=== PATIENT | female | born 1945 | race Caucasian/White ===

== ENCOUNTER 2019-12-18 03:44 | Emergency (ER) | payer MEDICARE ==
[2019-12-18] MEDS ORDERED: Ondansetron 4 MG/2 ML SDV IVPUSH ONE (04:55)
[2019-12-18] MEDS ORDERED: HYDROmorphone 0.5 MG/0.5 ML Syringe IVPUSH ONE ×2 (04:55→08:25)
[2019-12-18] MEDS ORDERED: Iopamidol 612 MG/ML 100 ML Bottle IV STA (05:53)
[2019-12-18] MEDS ORDERED: Lactated Ringers 1,000 ML IV ONE (05:54)
--- NOTE | 2019-12-18 05:54 | EDM.PDOC ---
<Luisito Rubio - Last Filed: 12/18/19 07:43> ED HPI GENERAL MEDICAL PROBLEM - General Chief Complaint: Abdominal Pain Stated Complaint: LOWER ABD/BACK PAIN Time Seen by Provider: 12/18/19 04:30 Source of Information: Reports: Patient History Limitations: Reports: No Limitations - History of Present Illness INITIAL COMMENTS - FREE TEXT/NARRATIVE: 73 yo who presents with concerns of abdominal pain. She had noticed some intermittent abdominal pain, primarily in the RLQ, earlier in the day She woke up very early this AM with recurrent, more severe pain Pain is now diffuse. She also feels bloated and as if her stomach is distended. She has the urge to defecate but no stool or flatus Some vomiting of clear fluid No fevers Prior , no other abdominal surgeries. RLQ Pain Score (Numeric/FACES): 8 - Related Data Allergies Allergy/AdvReac Type Severity Reaction Status Date / Time No Known Allergies Allergy Verified 12/18/19 03:56 Home Meds: Home Meds Calcium Carb, Cit/Magnesium Ox [Calmag Thins Tablet] 1 tab PO BID 12/15/13 [ History] Cholecalciferol (Vitamin D3) [D3-2000] 1,000 unit PO DAILY 12/15/13 [History] Garlic 1 cap PO DAILY 12/15/13 [History] Multivit-Min/FA/Lycopene/Lut [Centrum Silver] 1 each PO DAILY 12/15/13 [History] Ubidecarenone/[place]-3/Vit E [Co Q-10-Vit E-Fish Oil Sfgl] 1 tab PO DAILY [History] Ascorbate Calcium/Bioflavonoid [Sivan-C 500 MG] 500 mg PO BID 02/21/19 [History] Vitamin B Complex [B Complex] 1 tab PO DAILY 02/21/19 [History] lisinopriL [Lisinopril] 1 tab PO DAILY 12/18/19 [History] Past Medical History HEENT History: Reports: Impaired Vision, Other (See Below) Other HEENT History: wears glasses, left thyroid nodule Cardiovascular History: Reports: Heart Murmur, Hypertension Gastrointestinal History: Reports: Colon 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: Musculoskeletal History: Reports: Osteoporosis Endocrine/Metabolic History: Reports: Multinodular Thyroid - Infectious Disease History Infectious Disease History: Reports: Chicken Pox, Measles - Past Surgical History GI Surgical History: Reports: Colonoscopy Female Surgical History: Reports: Section Endocrine Surgical History: Reports: Thyroid Biopsy Dermatological Surgical History: Reports: Skin Biopsy Social & Family History - Family History Family Medical History: Noncontributory - Tobacco Use Smoking Status *Q: Former Smoker Used Tobacco, but Quit: Yes Month/Year Tobacco Last Used: 2007 - Caffeine Use Caffeine Use: Reports: Coffee - Alcohol Use Days Per Week of Alcohol Use: 1 Number of Drinks Per Day: 1 Total Drinks Per Week: 1 - Recreational Drug Use Recreational Drug Use: No ED ROS GENERAL - Review of Systems Review Of Systems: See Below Constitutional: Reports: No Symptoms HEENT: Reports: No Symptoms Respiratory: Reports: No Symptoms Cardiovascular: Reports: No Symptoms Endocrine: Reports: No Symptoms GI/Abdominal: Reports: Abdominal Pain, Vomiting : Reports: No Symptoms Musculoskeletal: Reports: No Symptoms Skin: Reports: No Symptoms Neurological: Reports: No Symptoms Psychiatric: Reports: No Symptoms Hematologic/Lymphatic: Reports: No Symptoms Immunologic: Reports: No Symptoms ED EXAM, GI/ABD - Physical Exam Exam: See Below Exam Limited By: No Limitations General Appearance: Alert, Mild Distress Nose: Normal Inspection Throat/Mouth: Normal Inspection Head: Atraumatic, Normocephalic Neck: Normal Inspection Respiratory/Chest: Lungs Clear Cardiovascular: Regular Rate, Rhythm GI/Abdominal Exam: Distended, Tender (primarily in the right lower quadrant). No: Guarding Rectal (Female) Exam: Normal Exam Back Exam: Normal Inspection Extremities: Normal Inspection Neurological: Alert, Oriented Psychiatric: Normal Affect, Normal Mood Skin Exam: Warm, Dry Course - Vital Signs Last Recorded V/S: Last Vital Signs Temp 98.2 F 12/18/19 07:47 Pulse 102 H 12/18/19 07:47 Resp 16 12/18/19 07:47 BP 173/95 H 12/18/19 07:47 Pulse Ox 96 12/18/19 07:47 - Orders/Labs/Meds Labs: Laboratory Tests 12/18/19 12/18/19 12/18/19 Range/Units 04:15 04:15 04:47 WBC 9.1 (4.5-11.0) K/uL RBC 4.50 (3.30-5.50) M/uL Hgb 13.4 D (12.0-15.0) g/dL Hct 41.6 (36.0-48.0) % MCV 92 (80-98) fL MCH 30 (27-31) pg MCHC 32 (32-36) % Plt Count 354 (150-400) K/uL Sodium 137 L (140-148) mmol/L Potassium 3.9 (3.6-5.2) mmol/L Chloride 99 L (100-108) mmol/L Carbon Dioxide 27 (21-32) mmol/L Anion Gap 14.9 H (5.0-14.0) mmol/L BUN 14 D (7-18) mg/dL Creatinine 0.7 D (0.6-1.0) mg/dL Est Cr Clr Drug Dosing 55.77 mL/min Estimated GFR (MDRD) > 60 (>60) Glucose 135 H (74-106) mg/dL Calcium 8.8 (8.5-10.1) mg/dL Total Bilirubin 0.4 D (0.2-1.0) mg/dL AST 14 L (15-37) U/L ALT 25 (12-78) U/L Alkaline Phosphatase 82 (46-116) U/L Total Protein 7.8 (6.4-8.2) g/dL Albumin 3.9 (3.4-5.0) g/dL Globulin 3.9 H (2.3-3.5) g/dL Albumin/Globulin Ratio 1.0 L (1.2-2.2) Lipase 76 (73-393) U/L Urine Color Yellow (YELLOW) Urine Appearance Clear (CLEAR) Urine pH 7.0 (5.0-8.0) Ur Specific [place] >= 1.030 (1.008-1.030) Urine Protein Negative (NEGATIVE) mg/dL Urine Glucose (UA) Negative (NEGATIVE) mg/dL Urine Ketones Negative (NEGATIVE) mg/dL Urine Occult Blood Trace-intact H (NEGATIVE) Urine Nitrite Negative (NEGATIVE) Urine Bilirubin Negative (NEGATIVE) Urine Urobilinogen 0.2 (0.2-1.0) EU/dL Ur Leukocyte Esterase Trace H (NEGATIVE) Urine RBC 0-5 (0-5) Urine WBC 0-5 (0-5) Ur Epithelial Cells Few Amorphous Sediment Not seen Urine Bacteria Few Urine Mucus Not seen Meds: Medications Discontinued Medications Generic Name Dose Route Start Last Admin Trade Name Freq PRN Reason Stop Dose Admin Diphenhydramine HCl 25 mg 12/18/19 06:07 12/18/19 06:13 Benadryl IVPUSH 12/18/19 06:08 25 mg ONETIME ONE Administration Hydromorphone HCl 0.5 mg 12/18/19 04:55 12/18/19 05:03 Dilaudid IVPUSH 12/18/19 04:56 0.5 mg ONETIME ONE Administration Hydromorphone HCl 0.5 mg 12/18/19 08:25 12/18/19 08:29 Dilaudid IVPUSH 12/18/19 08:26 0.5 mg ONETIME ONE Administration Sodium Chloride 70 mls @ 3 mls/sec 12/18/19 05:54 12/18/19 06:06 Normal Saline IV 12/18/19 05:55 3 mls/sec ASDIRECTED STA Administration Lactated Ringer's 1,000 mls @ 999 mls/hr 12/18/19 05:54 12/18/19 06:23 Ringers, Lactated IV 12/18/19 06:54 999 mls/hr BOLUS ONE Administration Iopamidol 100 ml 12/18/19 05:53 12/18/19 06:05 Isovue-300 (61%) IV 12/18/19 05:54 100 ml . DIRECTED STA Administration Ondansetron HCl 4 mg 12/18/19 04:55 12/18/19 05:02 Zofran IVPUSH 12/18/19 04:56 4 mg ONETIME ONE Administration - Re-Assessments/Exams Free Text/Narrative Re-Assessment/Exam: 73 yo presents with concerns of abdominal pain and distension. Normal vitals, does seem to have some distension and she is tender, primarily in the RLQ Labs generally unremarkable. Concern for obstruction, possibly appy or stone. Will obtain CT of the abdomen Provided IV pain control and anti-emetics. 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 Reviewed these unfortunate results with the patient. Our plan is to arrange further work-up through a hospital system in the [facility] where patient's family resides. Patient is being signed out to Dr Herrmann to determine final treatment plan. 12/18/19 07:44 Departure - Departure Disposition: Home, Self-Care 01 Clinical Impression: Lower abdominal pain, Ovarian mass, right - Discharge Information Instructions: Abdominal Pain, Adult, [id number] Referrals: Juliet Romero DO [Primary Care Provider] - Forms: ED Department Discharge Care Plan Goals: Continue current medications, use pain medications for pain and expect a call from [facility] in the near future to set up a clinic visit for consultation regarding a treatment plan. Fiber or stool softeners with lots of water to avoid constipation while taking the pain medication would be helpful. Sepsis Event Note - Evaluation Sepsis Screening Result: No Definite Risk - Focused Exam Vital Signs: Vital Signs Temp Pulse Resp BP Pulse Ox 12/18/19 07:47 98.2 F 102 H 16 173/95 H 96 12/18/19 03:58 97 F 77 20 198/86 H 96 Date Exam was Performed: 12/18/19 Time Exam was Performed: 07:44 <Cas Herrmann - Last Filed: 12/18/19 14:47> Course - Re-Assessments/Exams Free Text/Narrative Re-Assessment/Exam: 12/18/19 09:09 [facility] at [facility] agreed to call the patient in the next 1-2 days to establish an outpatient visit. Copies of labs, CT report and a CD copy of the CT were all given to the patient to take to her appointment. Prescription for 10 2 mg Dilaudid pills for pain control were given as she seemed to respond well to IV Dilaudid for pain. Departure - Departure Time of Disposition: 09:35 Sepsis Event Note - Focused Exam Date Exam was Performed: 12/18/19 Time Exam was Performed: 14:47
[2019-12-18] MEDS ORDERED: diphenhydrAMINE 50 MG/ML SDV IVPUSH ONE (06:07)
--- NOTE | 2019-12-18 07:29 | CRLCT ---
INDICATION: Abdominal distention and pain. COMPARISON: 12/16/2013. TECHNIQUE: CT abdomen and pelvis with IV contrast. 100 cc of IV Omnipaque 300. FINDINGS: Mild linear bibasilar subsegmental atelectasis/scarring. Liver, gallbladder, spleen, pancreas and adrenal glands are unremarkable. Kidneys enhance symmetrically. No obstructing renal calculus or hydronephrosis. Abdominal aorta is tortuous but in non aneurysmal. Urinary bladder is unremarkable. Uterus is present. No lymphadenopathy in the abdomen or pelvis. Small volume ascites. No evidence of bowel obstruction. Large septated cystic mass originating from the pelvis, possibly the right adnexa/ovary which measures 15.8 x 11.6 cm in axial dimension (series 2 image 79) and 11.7 cm in craniocaudal dimension (series 4 image 36). Bones are demineralized. Degenerative changes in the spine. IMPRESSION: 1. Large cystic septated mass originating in the pelvis, possibly the right adnexa/ovary highly suspicious for cystic ovarian neoplasm/malignancy. 2. Small volume ascites. Please note that all CT scans at this facility use dose modulation, iterative reconstruction, and/or weight-based dosing when appropriate to reduce radiation dose to as low as reasonably achievable. Dictated by Samir Thakkar MD @ Dec 18 2019 7:18AM Signed by Dr. Samir Thakkar @ Dec 18 2019 7:26AM
== END 2019-12-18 09:35 | disposition home or self-care (01) ==
LOC: JP.ED 03:44
DX: N83.9 Noninflammatory disorder of ovary, fallopian tube and broad ligament, unspecified (principal); I10 Essential (primary) hypertension; Z79.899 Other long term (current) drug therapy; Z87.891 Personal history of nicotine dependence
CPT/HCPCS: 36415; 74177; 80053; 81001; 83690; 85027; 96361; 96374; 96375; 96376; 99284; J1170; J1200; J2405; J7050; J7120; Q9967

== ENCOUNTER 2020-01-07 11:37 | Emergency (ER) | payer MEDICARE ==
--- NOTE | 2020-01-07 12:14 | EDM.PDOC ---
ED HPI GENERAL MEDICAL PROBLEM - General Chief Complaint: Lower Extremity Injury/Pain Stated Complaint: PAIN AND SWELLING R FOOT POST SURGERY Time Seen by Provider: 01/07/20 12:05 Source of Information: Reports: Patient, Old Records History Limitations: Reports: No Limitations - History of Present Illness INITIAL COMMENTS - FREE TEXT/NARRATIVE: 74 yo female presents with R foot swelling for the past 5 days. She called the clinic to discuss and was told to go to the ER to R/O DVT. She does not have any calf pain or swelling and no SOB. She has an appt tomorrow with her primary for follow up on a UTI. 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) (none) - Related Data Allergies Allergy/AdvReac Type Severity Reaction Status Date / Time No Known Allergies Allergy Verified 12/18/19 03:56 Home Meds: Home Meds Calcium Carb, Cit/Magnesium Ox [Calmag Thins Tablet] 1 tab PO BID 12/15/13 [ History] Cholecalciferol (Vitamin D3) [D3-2000] 1,000 unit PO DAILY 12/15/13 [History] Garlic 1 cap PO DAILY 12/15/13 [History] Multivit-Min/FA/Lycopene/Lut [Centrum Silver] 1 each PO DAILY 12/15/13 [History] Ubidecarenone/[place]-3/Vit E [Co Q-10-Vit E-Fish Oil Sfgl] 1 tab PO DAILY [History] Ascorbate Calcium/Bioflavonoid [Sivan-C 500 MG] 500 mg PO BID 02/21/19 [History] Vitamin B Complex [B Complex] 1 tab PO DAILY 02/21/19 [History] lisinopriL [Lisinopril] 40 mg PO DAILY 12/18/19 [History] hydroCHLOROthiazide [Hydrochlorothiazide] 12.5 mg PO DAILY 01/07/20 [History] Past Medical History HEENT History: Reports: Impaired Vision, Other (See Below) Other HEENT History: wears glasses, left thyroid nodule Cardiovascular History: Reports: Heart Murmur, Hypertension Gastrointestinal History: Reports: Colon 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: Musculoskeletal History: Reports: Osteoporosis Endocrine/Metabolic History: Reports: Multinodular Thyroid - Infectious Disease History Infectious Disease History: Reports: Chicken Pox, Measles - Past Surgical History GI Surgical History: Reports: Colonoscopy Female Surgical History: Reports: Section Endocrine Surgical History: Reports: Thyroid Biopsy Dermatological Surgical History: Reports: Skin Biopsy Social & Family History - Family History Family Medical History: Noncontributory - Caffeine Use Caffeine Use: Reports: Coffee Review of Systems - Review of Systems Review Of Systems: Comprehensive ROS is negative, except as noted in HPI. Constitutional: Reports: No Symptoms Musculoskeletal: Reports: Other (R foot and ankle puffy x 5 d) Skin: Reports: No Symptoms Neurological: Reports: No Symptoms ED EXAM, GENERAL - Physical Exam Exam: See Below Exam Limited By: No Limitations General Appearance: Alert, WD/WN, No Apparent Distress Eye Exam: Bilateral Eye: Normal Inspection Ears: Hearing Grossly Normal Ear Exam: Bilateral Ear: Auricle Normal, Canal Normal Nose: Normal Inspection, No Blood Throat/Mouth: Normal Inspection, Normal Lips, Normal Voice, No Airway Compromise Head: Atraumatic, Normocephalic Neck: Normal Inspection Respiratory/Chest: No Respiratory Distress, Lungs Clear, Normal Breath Sounds, No Accessory Muscle Use Cardiovascular: Regular Rate, Rhythm Extremities: Pedal Edema (R foot and ankle puffy, no R calf pain, negative Cinthia 's sign). No: No Pedal Edema Neurological: Alert, Oriented, CN II-XII Intact, Normal Cognition, No Motor/ Sensory Deficits Psychiatric: Normal Affect, Normal Mood Skin Exam: Warm, Dry, Intact, Normal Color, No Rash. No: Erythema, Increased Warmth Course - Vital Signs Last Recorded V/S: Last Vital Signs Temp 35.5 C L 01/07/20 12:14 Pulse 81 01/07/20 12:14 Resp 16 01/07/20 12:14 BP 169/68 H 01/07/20 12:14 Pulse Ox 98 01/07/20 12:14 - Orders/Labs/Meds Orders: Active Orders 24 hr Category Date Time Status VL Duplex Lwr Ext Veins Ltd Rt [US] Stat Exams 01/07/20 12:54 Ordered Labs: Laboratory Tests 01/07/20 Range/Units 12:10 D-Dimer, Quantitative 2160 H (0.0-400.0) ng/mL - Radiology Interpretation Free Text/Narrative:: venous doppler negative for DVT Departure - Departure Time of Disposition: 13:39 Disposition: Home, Self-Care 01 Condition: Good Clinical Impression: Foot swelling - Discharge Information *PRESCRIPTION DRUG MONITORING PROGRAM REVIEWED*: Not Applicable *COPY OF PRESCRIPTION DRUG MONITORING REPORT IN PATIENT SHIV: Not Applicable Instructions: Edema, [id number] Referrals: PCP,None [Primary Care Provider] - Forms: ED Department Discharge Additional Instructions: Elevate your foot above your heat to reduce swelling. Avoid salt. Support stockings may benefit. Recheck with your doctor as needed. Sepsis Event Note - Focused Exam Vital Signs: Vital Signs Temp Pulse Resp BP Pulse Ox 01/07/20 12:14 35.5 C L 81 16 169/68 H 98 01/07/20 12:00 35.5 C L 81 16 169/68 H 98 Date Exam was Performed: 01/07/20 Time Exam was Performed: 13:39 - My Orders Last 24 Hours: My Active Orders 01/07/20 12:54 VL Duplex Lwr Ext Veins Ltd Rt [US] Stat - Assessment/Plan Last 24 Hours: My Active Orders 01/07/20 12:54 VL Duplex Lwr Ext Veins Ltd Rt [US] Stat
--- NOTE | 2020-01-07 14:07 | US ---
VL Duplex Lwr Ext Veins Ltd Rt INDICATION: foot and ankle swelling x 5d, increased d-dimer FINDINGS: Ultrasound examination of the lower extremity using Doppler and compressive technique demonstrates that the common femoral, femoral, and popliteal veins are patent, and negative for thrombus. The calf veins were segmentally visualized and are negative where seen. There is some clot in the greater saphenous vein at the calf level. IMPRESSION: Negative for deep venous thrombosis. Thrombus in the greater saphenous vein within the calf
== END 2020-01-07 13:55 | disposition home or self-care (01) ==
LOC: JP.ED 11:37
DX: M79.89 Other specified soft tissue disorders (principal); I10 Essential (primary) hypertension; Z79.899 Other long term (current) drug therapy
CPT/HCPCS: 36415; 85379; 93971-26; 93971-RT; 99282; 99284-25

== ENCOUNTER 2021-01-08 07:10 | Day surgery (SDC) | payer MEDICARE ==
[2021-01-08] MEDS ORDERED: Sodium Chloride 0.9% 10 ML Syringe FLUSH PRN (07:30)
--- NOTE | 2021-01-08 12:15 | OR ---
DATE OF PROCEDURE: 01/08/2021 SURGEON: Sahra Roach MD POSTOPERATIVE CARE: Postoperative care will be provided mainly at the [address] [place] [address] [facility] in conjunction with [facility]. PREOPERATIVE DIAGNOSIS: Cataract, left eye. POSTOPERATIVE DIAGNOSIS: Cataract, left eye. PROCEDURE: Phacoemulsification with intraocular lens placement, left eye. ANESTHESIA: Topical and intracameral. ESTIMATED BLOOD LOSS: Minimal. COMPLICATIONS: None. PATHOLOGY SPECIMENS: None. SURGICAL FINDINGS: None. INDICATION FOR PROCEDURE: The patient is a 75-year-old female with history of a visually significant cataract in the left eye, which interfered with activities of daily living. This consisted of a nuclear sclerosis cataract. Following careful discussion of the risks, benefits and alternatives to cataract extraction with intraocular lens placement including blindness and , the patient elected to proceed, and informed, written consent was obtained prior to the procedure. DESCRIPTION OF THE PROCEDURE: The patient was previously identified, and a vida placed above the left eye. All sources, including the patient, indicated that the left eye was the correct eye. The patient was subsequently taken to the operating room where standard monitors were applied. The patient was then prepped and draped in the usual sterile fashion for ophthalmic surgery. Attention was first directed at the 12 o'clock position where a paracentesis port was fashioned. Shugar solution followed by Viscoat was instilled into the eye. Attention was then directed to the 8:30 position where a triplanar incision was made in a near-clear manner using a keratome. A continuous capsulorrhexis was then made using a combination of the cystotome and Utrata forceps. Hydrodissection was achieved using a balanced salt solution, and the lens rotated nicely. Phacoemulsification was then done using a modified [id number] technique without complication. Phaco time was 7.52 CDE. The remaining cortex was removed using the irrigation/aspiration handpiece. Provisc was then instilled into the eye. A Technis lens, model DCB00, at 22.0 Diopters was then placed in the capsular bag using an [place] injector. The remaining viscoelastic was removed using the irrigation/aspiration forceps. All wounds were then checked and found to be watertight. The lid speculum and drapes were removed. Maxitrol ointment was placed in the patient's left eye, and the eye was shielded. The patient tolerated the procedure well. The patient was instructed to follow up tomorrow. All needle and sponge counts were correct at the end of the procedure. There were no surgical findings. Sahra Roach MD /[id number]
== END 2021-01-08 08:32 | disposition home or self-care (01) ==
LOC: JP.SDS 07:10
PROVIDERS: ATTEND Ophthalmology
DX: H25.12 Age-related nuclear cataract, left eye (principal); I10 Essential (primary) hypertension; J44.9 Chronic obstructive pulmonary disease, unspecified; Z87.891 Personal history of nicotine dependence; Z86.010 Personal history of colon polyps; Z98.890 Other specified postprocedural states
CPT/HCPCS: V2632

== ENCOUNTER 2021-01-22 05:42 | Day surgery (SDC) | payer MEDICARE ==
[2021-01-22] MEDS ORDERED: Sodium Chloride 0.9% 10 ML Syringe FLUSH PRN (06:30)
--- NOTE | 2021-01-22 13:37 | OR ---
DATE OF PROCEDURE: 01/22/2021 SURGEON: Sahra Roach MD POSTOPERATIVE CARE: Postoperative care will be provided mainly at the [address] [place] [address] [facility] in conjunction with [facility]. PREOPERATIVE DIAGNOSIS: Cataract, right eye. POSTOPERATIVE DIAGNOSIS: Cataract, right eye. PROCEDURE: Phacoemulsification with intraocular lens placement, right eye. ANESTHESIA: Topical and intracameral. ESTIMATED BLOOD LOSS: Minimal. COMPLICATIONS: None. PATHOLOGY SPECIMENS: None. SURGICAL FINDINGS: None. INDICATION FOR PROCEDURE: The patient is a 75-year-old female with history of a visually significant cataract in the right eye, which interfered with activities of daily living. This consisted of a nuclear sclerosis cataract. Following careful discussion of the risks, benefits and alternatives to cataract extraction with intraocular lens placement including blindness and , the patient elected to proceed, and informed, written consent was obtained prior to the procedure. DESCRIPTION OF THE PROCEDURE: The patient was previously identified, and a vida placed above the right eye. All sources, including the patient, indicated that the right eye was the correct eye. The patient was subsequently taken to the operating room where standard monitors were applied. The patient was then prepped and draped in the usual sterile fashion for ophthalmic surgery. Attention was first directed at the 12 o'clock position where a paracentesis port was fashioned. Shugar solution followed by Viscoat was instilled into the eye. Attention was then directed to the 8:30 position where a triplanar incision was made in a near-clear manner using a keratome. A continuous capsulorrhexis was then made using a combination of the cystotome and Utrata forceps. Hydrodissection was achieved using a balanced salt solution, and the lens rotated nicely. Phacoemulsification was then done using a modified [id number] technique without complication. Phaco time was 8.82 CDE. The remaining cortex was removed using the irrigation/aspiration handpiece. Provisc was then instilled into the eye. A Technis lens, model DCB00, at 21.0 diopters was then placed in the capsular bag using an [place] injector. The remaining viscoelastic was removed using the irrigation/aspiration forceps. All wounds were then checked and found to be watertight. The lid speculum and drapes were removed. Maxitrol ointment was placed in the patient's right eye, and the eye was shielded. The patient tolerated the procedure well. The patient was instructed to follow up tomorrow. All needle and sponge counts were correct at the end of the procedure. There were no surgical findings. Sahra Roach MD /[id number]
== END 2021-01-22 08:01 | disposition home or self-care (01) ==
LOC: JP.SDS 05:42
PROVIDERS: ATTEND Ophthalmology
DX: H25.11 Age-related nuclear cataract, right eye (principal); J45.909 Unspecified asthma, uncomplicated; I10 Essential (primary) hypertension
CPT/HCPCS: 66984; V2632

== ENCOUNTER 2023-06-26 19:01 | Emergency (ER) | payer MEDICARE | END 2023-06-26 21:00 | disposition home or self-care (01) | LOC: JP.ED 19:01 | DX: I80.3 Phlebitis and thrombophlebitis of lower extremities, unspecified (principal); Z88.8 Allergy status to other drugs, medicaments and biological substances | CPT/HCPCS: 99282; 99283 ==

== ENCOUNTER 2023-07-09 21:59 | Emergency (ER) | payer MEDICARE ==
[2023-07-09 23:12] LABS: BASOPHILS ABSOLUTE AUTO 0.05 K/uL (0.00-0.10); BASOPHILS PERCENT AUTO 0.8 % (0.1-1.3); EOSINOPHILS PERCENT AUTO 1.5 % (0.0-5.4); HEMATOCRIT 33.5 % (34.3-46.0); IMMATURE GRAN PERCENT AUTO 0.2 % (0.0-0.7); LYMPHOCYTES ABSOLUTE AUTO 2.28 K/uL (0.8-3.3); LYMPHOCYTES PERCENT AUTO 34.9 % (11.4-47.7); MEAN CORPUSCULAR HEMOGLOBIN 29.3 pg (31.6-35.5); MEAN CORPUSCULAR HGB CONC 32.8 g/dL (31.6-35.5); MEAN CORPUSCULAR VOLUME 89.3 fL (81.4-99.0); MONOCYTES ABSOLUTE AUTO 0.47 K/uL (0.20-0.90); MONOCYTES PERCENT AUTO 7.2 % (3.3-12.6); NEUTROPHILS ABSOLUTE AUTO 3.62 K/uL (1.0-7.6); NEUTROPHILS PERCENT AUTO 55.4 % (40.0-78.1); PLATELET COUNT,PLT 344 K/uL (130-375); RED BLOOD CELL COUNT 3.75 M/uL (3.77-5.24); WHITE BLOOD CELL COUNT,WBC 6.5 K/uL (3.2-11.0)
[2023-07-09 23:15] LABS: IMMATURE GRAN ABSOLUTE AUTO 0.01 K/uL (0.00-0.23)
[2023-07-09 23:31] LABS: PROTHROMBIN TIME 9.9 sec (9.2-10.6); PTT,PARTIAL THROMBOPLSTIN TIME 25.2 sec (21.8-27.3)
[2023-07-10] MEDS ORDERED: Cephalexin 250 MG Cap PO ONE (00:17)
== END 2023-07-10 00:42 | disposition home or self-care (01) ==
LOC: JP.ED 21:59
DX: L03.116 Cellulitis of left lower limb (principal); L03.115 Cellulitis of right lower limb; I73.9 Peripheral vascular disease, unspecified; J44.9 Chronic obstructive pulmonary disease, unspecified; I10 Essential (primary) hypertension; Z88.8 Allergy status to other drugs, medicaments and biological substances; Z79.899 Other long term (current) drug therapy
CPT/HCPCS: 36415; 85025; 85379; 85610; 85730; 86140; 99283; A9270

== ENCOUNTER 2024-04-25 14:53 | Emergency (ER) | payer MEDICARE ==
[2024-04-25 16:12] LABS: HEMATOCRIT 24.5 % (34.3-46.0); HEMOGLOBIN 8.4 g/dL (11.2-15.5); MEAN CORPUSCULAR HEMOGLOBIN 28.3 pg (31.6-35.5); MEAN CORPUSCULAR HGB CONC 34.3 g/dL (31.6-35.5); MEAN CORPUSCULAR VOLUME 82.5 fL (81.4-99.0); PLATELET COUNT,PLT 421 K/uL (130-375); RED BLOOD CELL COUNT 2.97 M/uL (3.77-5.24); WHITE BLOOD CELL COUNT,WBC 10.4 K/uL (3.2-11.0)
[2024-04-25 16:32] LABS: BAND ABSOLUTE MAN 0.83 K/uL; BAND PERCENT MAN 8 % (5-11); LYMPHOCYTES ABSOLUTE MAN 0.94 K/uL (0.8-3.3); LYMPHOCYTES PERCENT MAN 9 % (24-44); METAMYELOCYTE PERCENT MAN 1 %; MONOCYTES ABSOLUTE MAN 0.73 K/uL (0.20-0.90); MONOCYTES PERCENT MAN 7 % (2-6); MYELOCYTE PERCENT MAN 1 %; SEG NEUTROPHILS PERCENT MAN 74 % (36-66)
[2024-04-25 16:33] LABS: A/G RATIO 0.5 (1.2-2.2); ALANINE AMINOTRANSFERASE,ALT 17 U/L (12-78); ALBUMIN 1.9 g/dL (3.4-5.0); ALKALINE PHOSPHATASE 74 U/L (46-116); ASPARTATE AMNIOTRANSFERASE,AST 10 U/L (15-37); BILIRUBIN TOTAL 0.3 mg/dL (0.2-1.0); BLOOD UREA NITROGEN,BUN 14 mg/dL (7-18); CARBON DIOXIDE,CO2 24 mmol/L (21-32); CHLORIDE,CL 95 mmol/L (100-108); CREATININE 0.6 mg/dL (0.6-1.0); EST CRCL DRUG DOSING (CG) 60.13 mL/min; ESTIMATED GFR 91 mL/min (>60); GLUCOSE RANDOM 112 mg/dL (74-106); PROTEIN TOTAL,TP 5.5 g/dL (6.4-8.2); SODIUM,NA 127 mmol/L (140-148)
[2024-04-25] MEDS ORDERED: Morphine 2 MG/ML SYRINGE IVPUSH ONE (16:36)
[2024-04-25] MEDS: Morphine 2 MG/ML SYRINGE IM ONE (17:47)
[2024-04-25] MEDS: Potassium Chloride 20 MEQ Tab.ER PO ONE (17:48)
[2024-04-25] MEDS: Sodium Chloride 0.9% 100 ML IV ONE (18:07)
[2024-04-25] MEDS: Sodium Chloride 0.9% 10 ML Syringe FLUSH ONE (18:07)
[2024-04-25] MEDS: Iopamidol 612 MG/ML 100 ML Bottle IV ONE (18:07)
[2024-04-25 18:15] LABS: APPEARANCE,URINE SLIGHTLY CLOUDY (CLEAR); BILIRUBIN,URINE NEGATIVE (NEGATIVE); COLOR,URINE YELLOW (YELLOW); GLUCOSE,URINE NEGATIVE (NEGATIVE); KETONES,URINE NEGATIVE (NEGATIVE); LEUKOCYTE ESTERASE,URINE SMALL (NEGATIVE); NITRITE,URINE NEGATIVE (NEGATIVE); OCCULT BLOOD,URINE TRACE-INTACT (NEGATIVE); PROTEIN,URINE 30 mg/dL (NEGATIVE); UROBILINOGEN,URINE 0.2 EU/dL (0.2-1.0)
[2024-04-25 18:21] LABS: AMORPHOUS SEDIMENT,URINE NOT SEEN; BACTERIA,URINE MODERATE; EPITHELIAL CELLS,URINE FEW; MUCUS,URINE NOT SEEN; RBC,URINE 0-5 (0-5); WBC,URINE 20-30 (0-5)
== END 2024-04-26 00:10 | disposition other institution (70) ==
LOC: JP.ED 14:53
DX: K56.7 Ileus, unspecified (principal); J44.9 Chronic obstructive pulmonary disease, unspecified; I10 Essential (primary) hypertension; Z88.8 Allergy status to other drugs, medicaments and biological substances; Z88.5 Allergy status to narcotic agent; Z79.899 Other long term (current) drug therapy; Z86.16 Personal history of COVID-19
CPT/HCPCS: 36415; 74177; 80053; 81001; 85025; 96372; 99285; A9270; J2270; J3490; Q9967

== ENCOUNTER 2025-07-14 09:03 | Emergency (ER) | payer MEDICARE | END 2025-07-14 10:34 | disposition home or self-care (01) | LOC: JP.ED 09:03 | DX: R19.7 Diarrhea, unspecified (principal); I10 Essential (primary) hypertension; J44.89 Other specified chronic obstructive pulmonary disease; Z86.16 Personal history of COVID-19; Z90.710 Acquired absence of both cervix and uterus; Z88.8 Allergy status to other drugs, medicaments and biological substances; Z79.51 Long term (current) use of inhaled steroids; Z79.899 Other long term (current) drug therapy | CPT/HCPCS: 99283 ==